=== PATIENT | male | born 1950 | race Caucasian/White ===

== ENCOUNTER → 2022-07-28 | Outpatient (CLI) | payer MEDICARE, BC ==
[~2022-07-28] VITALS: Ht 167.6 cm; Wt 89.4 kg
[~2022-07-28] MED LIST: AMOX500C PO; ATOR40TA75 PO; B-12100021 PO; B-2100TA PO; B-COTAB10 PO; BETA5OI TOP; CALC0.009 TOP; CALC500C14 PO; COLA100C5 PO; CYMB60CA4 PO; ESOM1CAP5 PO; FERR324T21 PO; LEVO75TA4 PO; LYRI300C PO; MAGN400T2 PO; MOUKOT60 MT; MULT1TAB7 PO; NITR-67 PO; NORT10CA2 PO; OXYC80TA22 PO; PRED10TA2 PO; PRESCAP4 PO; VITA400T15 PO; WARF-20 PO; WARF-58 PO; [UNRECOGNIZED DRUG - OTHER] INH
[2022-07-28 08:45] VITALS: BP 118/60
== END ==
LOC: M PAL 08:42
PROVIDERS: ATTEND Nurse Practitioner Adult Health
DX: M51.36 Other intervertebral disc degeneration, lumbar region (principal); M19.91 Primary osteoarthritis, unspecified site; Z51.5 Encounter for palliative care; M48.061 Spinal stenosis, lumbar region without neurogenic claudication; Z79.01 Long term (current) use of anticoagulants; Z79.899 Other long term (current) drug therapy; Z79.891 Long term (current) use of opiate analgesic

== ENCOUNTER → 2023-07-19 | Outpatient (CLI) | payer MEDICARE, BC ==
[~2023-07-19] VITALS: Ht 167.6 cm; Wt 86.3 kg
[~2023-07-19] MED LIST changes: +CALC0.0017 TOP; -CALC0.009 TOP; +METF-838 PO
[2023-07-19 08:51] VITALS: BP 136/77; O2SAT 97
== END ==
LOC: M PAL 08:31
PROVIDERS: ATTEND Nurse Practitioner Adult Health
DX: M51.36 Other intervertebral disc degeneration, lumbar region (principal); M19.91 Primary osteoarthritis, unspecified site; Z51.5 Encounter for palliative care; M48.061 Spinal stenosis, lumbar region without neurogenic claudication; Z79.01 Long term (current) use of anticoagulants; Z79.899 Other long term (current) drug therapy